=== PATIENT | female | born 1985 | race Caucasian/White ===

== ENCOUNTER 2018-06-20 23:49 | Emergency (ER) | payer SELFPAY ==
[~2018-06-20] VITALS: Ht 162.6 cm; Wt 101.2 kg
[2018-06-21 00:16] VITALS: BP 138/93
== END 2018-06-21 00:16 | disposition home or self-care (01) ==
LOC: ED 23:49
DX: K02.9 Dental caries, unspecified (principal)

== ENCOUNTER 2018-07-27 14:42 | Emergency (ER) | payer MEDICAID ==
[~2018-07-27] VITALS: Ht 162.6 cm; Wt 99.8 kg
[2018-07-27 14:54] VITALS: BP 116/76; Ht 162.6 cm; Wt 99.8 kg
== END 2018-07-27 17:38 | disposition home or self-care (01) ==
LOC: ED 14:42
DX: K08.89 Other specified disorders of teeth and supporting structures (principal)